=== PATIENT | female | born 1950 | race Caucasian/White ===

== ENCOUNTER 2017-09-03 11:38 | Inpatient (IN) | payer MEDICARE ==
[2017-09-03] MEDS ORDERED: PERCOCET TABLET 5/325MG PO PRN (18:17)
[2017-09-03] MEDS: Trandate 100 MG PO SCH (22:08)
[2017-09-03] MEDS: ENOXAPARIN SODIUM SQ SCH (22:09)
[2017-09-04] MEDS: TYLENOL 325 MG PO PRN ×2 (06:44→14:26)
[2017-09-04] MEDS ORDERED: Ventolin Hfa MDI IH PRN (07:00)
[2017-09-04] MEDS ORDERED: PROVENTIL COMMON CANISTER IH PRN (07:12)
[2017-09-04] MEDS: ENOXAPARIN SODIUM SQ SCH ×2 (09:33→21:33)
[2017-09-04] MEDS: NORVASC 5 MG PO SCH (09:34)
[2017-09-04] MEDS: Trandate 100 MG PO SCH ×2 (09:34→21:33)
[2017-09-04] MEDS: Maxzide-25MG Tablet PO SCH (09:37)
[2017-09-04] MEDS: Catapres 0.1 MG PO SCH (09:37)
[2017-09-04] MEDS ORDERED: NON-FORMULARY ITEM (Amlodipine Besylate 10 Mg [Norvasc 10 Mg] 10 MG) PO SCH (10:00)
[2017-09-04] MEDS ORDERED: Aplisol ID SCH (10:00)
[2017-09-04] MEDS ORDERED: Maxzide 25MG PO SCH (10:00)
[2017-09-04] MEDS ORDERED: CLONIDINE HCL 0.2 MG PO SCH (10:00)
[2017-09-04] MEDS: PERCOCET TABLET 5/325MG PO PRN (19:03)
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
[2017-09-05] MEDS: TYLENOL 325 MG PO PRN ×2 (06:53→14:58)
[2017-09-05] MEDS: PERCOCET TABLET 5/325MG PO PRN ×2 (08:14→22:16)
[2017-09-05] MEDS: NORVASC 5 MG PO SCH (11:23)
[2017-09-05] MEDS: Trandate 100 MG PO SCH ×2 (11:23→22:15)
[2017-09-05] MEDS: Maxzide-25MG Tablet PO SCH (11:23)
[2017-09-05] MEDS: Catapres 0.1 MG PO SCH (11:25)
[2017-09-05] MEDS: ENOXAPARIN SODIUM SQ SCH ×2 (11:29→22:17)
[2017-09-06] MEDS: Trandate 100 MG PO SCH ×2 (09:07→21:50)
[2017-09-06] MEDS: Catapres 0.1 MG PO SCH (09:07)
[2017-09-06] MEDS: NORVASC 5 MG PO SCH (09:07)
[2017-09-06] MEDS: Maxzide-25MG Tablet PO SCH (09:08)
[2017-09-06] MEDS: ENOXAPARIN SODIUM SQ SCH ×2 (09:09→21:49)
[2017-09-06] MEDS: TYLENOL 325 MG PO PRN (11:40)
[2017-09-06] MEDS: PERCOCET TABLET 5/325MG PO PRN (21:54)
[2017-09-07] MEDS: PERCOCET TABLET 5/325MG PO PRN (05:17)
[2017-09-07] MEDS: ENOXAPARIN SODIUM SQ SCH ×2 (09:01→22:30)
[2017-09-07] MEDS: Catapres 0.1 MG PO SCH (09:01)
[2017-09-07] MEDS: NORVASC 5 MG PO SCH (09:01)
[2017-09-07] MEDS: Maxzide-25MG Tablet PO SCH (09:02)
[2017-09-07] MEDS: Trandate 100 MG PO SCH ×2 (09:02→22:28)
[2017-09-07] MEDS: TYLENOL 325 MG PO PRN ×2 (12:27→22:28)
[2017-09-08] MEDS: NORVASC 5 MG PO SCH (09:13)
[2017-09-08] MEDS: Trandate 100 MG PO SCH ×2 (09:13→21:45)
[2017-09-08] MEDS: Catapres 0.1 MG PO SCH (09:14)
[2017-09-08] MEDS: PERCOCET TABLET 5/325MG PO PRN ×2 (09:14→21:45)
[2017-09-08] MEDS: Maxzide-25MG Tablet PO SCH (09:15)
[2017-09-08] MEDS: ENOXAPARIN SODIUM SQ SCH ×2 (09:16→21:45)
[2017-09-09] MEDS: ENOXAPARIN SODIUM SQ SCH ×2 (09:27→21:44)
[2017-09-09] MEDS: Catapres 0.1 MG PO SCH (09:27)
[2017-09-09] MEDS: NORVASC 5 MG PO SCH (09:28)
[2017-09-09] MEDS: Trandate 100 MG PO SCH ×2 (09:28→21:45)
[2017-09-09] MEDS: Maxzide-25MG Tablet PO SCH (09:28)
[2017-09-09] MEDS: Senokot-S Tablet PO SCH (10:20)
[2017-09-09] MEDS: PERCOCET TABLET 5/325MG PO PRN ×2 (11:04→21:44)
[2017-09-10 04:45] LABS: ANION GAP 10.6 MEQ/L (5-15); BLOOD UREA NITROGEN 21 mg/dL (7-17); CHLORIDE 104 mmol/L (98-107); Calcium 9.6 mg/dL (8.4-10.2); Carbon Dioxide 27 mmol/L (22-30); Creatinine 1 0.91 mg/dL (0.52-1.04); Glucose 114 mg/dL (74-106); Potassium 3.2 mmol/L (3.5-5.1); SODIUM 139 mmol/L (137-145)
[2017-09-10] MEDS: Senokot-S Tablet PO SCH (09:42)
[2017-09-10] MEDS: PERCOCET TABLET 5/325MG PO PRN ×2 (09:42→21:30)
[2017-09-10] MEDS: Catapres 0.1 MG PO SCH (09:43)
[2017-09-10] MEDS: NORVASC 5 MG PO SCH (09:43)
[2017-09-10] MEDS: Maxzide-25MG Tablet PO SCH (09:43)
[2017-09-10] MEDS: Trandate 100 MG PO SCH ×2 (09:44→21:31)
[2017-09-10] MEDS: Klor Con 10 MEQ PO SCH ×2 (09:44→21:31)
[2017-09-10] MEDS: ENOXAPARIN SODIUM SQ SCH ×2 (09:46→21:30)
[2017-09-11] MEDS: NORVASC 5 MG PO SCH (09:28)
[2017-09-11] MEDS: Trandate 100 MG PO SCH ×2 (09:29→21:19)
[2017-09-11] MEDS: Maxzide-25MG Tablet PO SCH (09:30)
[2017-09-11] MEDS: Senokot-S Tablet PO SCH (09:30)
[2017-09-11] MEDS: Klor Con 10 MEQ PO SCH ×2 (09:30→21:20)
[2017-09-11] MEDS: ENOXAPARIN SODIUM SQ SCH ×2 (09:30→21:20)
[2017-09-11] MEDS: Catapres 0.1 MG PO SCH (09:39)
[2017-09-11] MEDS: PERCOCET TABLET 5/325MG PO PRN (09:39)
[2017-09-12] MEDS: PERCOCET TABLET 5/325MG PO PRN ×2 (10:16→21:45)
[2017-09-12] MEDS: Maxzide-25MG Tablet PO SCH (10:17)
[2017-09-12] MEDS: Senokot-S Tablet PO SCH (10:17)
[2017-09-12] MEDS: Klor Con 10 MEQ PO SCH ×2 (10:18→21:49)
[2017-09-12] MEDS: Trandate 100 MG PO SCH ×2 (10:18→21:49)
[2017-09-12] MEDS: NORVASC 5 MG PO SCH (10:18)
[2017-09-12] MEDS: Catapres 0.1 MG PO SCH ×3 (10:18→21:49)
[2017-09-12] MEDS: ENOXAPARIN SODIUM SQ SCH ×2 (10:19→21:48)
[2017-09-13] MEDS: PERCOCET TABLET 5/325MG PO PRN (10:07)
[2017-09-13] MEDS: Catapres 0.1 MG PO SCH ×3 (10:08→22:26)
[2017-09-13] MEDS: Klor Con 10 MEQ PO SCH ×2 (10:08→22:27)
[2017-09-13] MEDS: Senokot-S Tablet PO SCH (10:08)
[2017-09-13] MEDS: Trandate 100 MG PO SCH ×2 (10:08→22:27)
[2017-09-13] MEDS: Maxzide-25MG Tablet PO SCH (10:09)
[2017-09-13] MEDS: NORVASC 5 MG PO SCH (10:09)
[2017-09-13] MEDS: ENOXAPARIN SODIUM SQ SCH ×2 (10:09→22:27)
[2017-09-13] MEDS ORDERED: PERCOCET TABLET 5/325MG PO PRN (16:16)
[2017-09-14] MEDS ORDERED: Aplisol ID SCH (10:00)
[2017-09-14] MEDS: Trandate 100 MG PO SCH ×2 (10:11→21:30)
[2017-09-14] MEDS: Catapres 0.1 MG PO SCH ×3 (10:12→21:30)
[2017-09-14] MEDS: Senokot-S Tablet PO SCH (10:14)
[2017-09-14] MEDS: NORVASC 5 MG PO SCH (10:14)
[2017-09-14] MEDS: Maxzide-25MG Tablet PO SCH (10:15)
[2017-09-14] MEDS: ENOXAPARIN SODIUM SQ SCH ×2 (10:16→21:31)
[2017-09-14] MEDS: Klor Con 10 MEQ PO SCH ×2 (10:16→21:30)
[2017-09-14] MEDS: TYLENOL 325 MG PO PRN (13:59)
[2017-09-15] MEDS: TYLENOL 325 MG PO PRN ×2 (09:00→22:17)
[2017-09-15] MEDS: Klor Con 10 MEQ PO SCH ×2 (09:00→22:18)
[2017-09-15] MEDS: Trandate 100 MG PO SCH ×2 (09:01→22:18)
[2017-09-15] MEDS: Maxzide-25MG Tablet PO SCH (09:01)
[2017-09-15] MEDS: Senokot-S Tablet PO SCH (09:02)
[2017-09-15] MEDS: Catapres 0.1 MG PO SCH ×3 (09:02→22:17)
[2017-09-15] MEDS: NORVASC 5 MG PO SCH (09:03)
[2017-09-15] MEDS: ENOXAPARIN SODIUM SQ SCH ×2 (09:04→22:17)
--- NOTE | 2017-09-15 19:17 | XRAY ---
Indication: Pain. Comparison: None AP/lateral nonweightbearing right foot demonstrates multiple orthopedic screws and external fixation device obscuring the majority of the foot. There appears to be 1st-5th metatarsal comminuted fractures in fairly good apposition/alignment. Comparison studies would be of benefit if available. No other bony, articular, or soft tissue abnormalities.
[2017-09-16] MEDS: NORVASC 5 MG PO SCH (10:03)
[2017-09-16] MEDS: Maxzide-25MG Tablet PO SCH (10:03)
[2017-09-16] MEDS: Catapres 0.1 MG PO SCH ×3 (10:03→21:47)
[2017-09-16] MEDS: Senokot-S Tablet PO SCH (10:03)
[2017-09-16] MEDS: Klor Con 10 MEQ PO SCH ×2 (10:04→21:47)
[2017-09-16] MEDS: Trandate 100 MG PO SCH ×2 (10:04→21:47)
[2017-09-16] MEDS: ENOXAPARIN SODIUM SQ SCH ×2 (10:06→21:51)
[2017-09-16] MEDS: TYLENOL 325 MG PO PRN (21:51)
[2017-09-17 04:32] LABS: ANION GAP 11.4 MEQ/L (5-15); BLOOD UREA NITROGEN 18 mg/dL (7-17); CHLORIDE 106 mmol/L (98-107); Calcium 9.6 mg/dL (8.4-10.2); Carbon Dioxide 26 mmol/L (22-30); Creatinine 1 0.72 mg/dL (0.52-1.04); Glucose 110 mg/dL (74-106); Potassium 3.6 mmol/L (3.5-5.1); SODIUM 140 mmol/L (137-145)
[2017-09-17] MEDS: Klor Con 10 MEQ PO SCH ×2 (09:07→21:56)
[2017-09-17] MEDS: NORVASC 5 MG PO SCH (09:07)
[2017-09-17] MEDS: Senokot-S Tablet PO SCH (09:07)
[2017-09-17] MEDS: Trandate 100 MG PO SCH ×2 (09:08→21:54)
[2017-09-17] MEDS: Catapres 0.1 MG PO SCH ×3 (09:08→21:56)
[2017-09-17] MEDS: ENOXAPARIN SODIUM SQ SCH ×2 (09:11→21:56)
[2017-09-17] MEDS: Maxzide-25MG Tablet PO SCH (13:05)
[2017-09-17] MEDS: TYLENOL 325 MG PO PRN (22:03)
[2017-09-18] MEDS: Catapres 0.1 MG PO SCH ×3 (08:12→21:25)
[2017-09-18] MEDS: NORVASC 5 MG PO SCH (08:12)
[2017-09-18] MEDS: Trandate 100 MG PO SCH ×2 (08:13→21:26)
[2017-09-18] MEDS: Klor Con 10 MEQ PO SCH ×2 (08:13→21:26)
[2017-09-18] MEDS: Maxzide-25MG Tablet PO SCH (08:13)
[2017-09-18] MEDS: ENOXAPARIN SODIUM SQ SCH ×2 (08:14→21:26)
[2017-09-18] MEDS: Senokot-S Tablet PO SCH (08:14)
[2017-09-18] MEDS: TYLENOL 325 MG PO PRN (08:14)
[2017-09-19] MEDS: TYLENOL 325 MG PO PRN ×3 (06:33→22:29)
[2017-09-19] MEDS: Catapres 0.1 MG PO SCH ×3 (09:17→22:29)
[2017-09-19] MEDS: Maxzide-25MG Tablet PO SCH (09:17)
[2017-09-19] MEDS: Trandate 100 MG PO SCH ×2 (09:17→22:30)
[2017-09-19] MEDS: NORVASC 5 MG PO SCH (09:18)
[2017-09-19] MEDS: ENOXAPARIN SODIUM SQ SCH ×2 (09:18→22:31)
[2017-09-19] MEDS: Klor Con 10 MEQ PO SCH ×2 (09:18→22:30)
[2017-09-19] MEDS: Senokot-S Tablet PO SCH (09:18)
[2017-09-20] MEDS: Catapres 0.1 MG PO SCH ×3 (09:59→22:50)
[2017-09-20] MEDS: TYLENOL 325 MG PO PRN ×2 (09:59→22:52)
[2017-09-20] MEDS: ENOXAPARIN SODIUM SQ SCH ×2 (10:00→22:50)
[2017-09-20] MEDS: Maxzide-25MG Tablet PO SCH (10:00)
[2017-09-20] MEDS: NORVASC 5 MG PO SCH (10:00)
[2017-09-20] MEDS: Klor Con 10 MEQ PO SCH ×2 (10:00→22:50)
[2017-09-20] MEDS: Senokot-S Tablet PO SCH (10:00)
[2017-09-20] MEDS: Trandate 100 MG PO SCH ×2 (10:01→22:51)
[2017-09-21] MEDS: TYLENOL 325 MG PO PRN ×2 (08:07→22:03)
[2017-09-21] MEDS: Klor Con 10 MEQ PO SCH ×2 (08:08→22:03)
[2017-09-21] MEDS: Catapres 0.1 MG PO SCH ×3 (08:09→22:03)
[2017-09-21] MEDS: NORVASC 5 MG PO SCH (08:09)
[2017-09-21] MEDS: Maxzide-25MG Tablet PO SCH (08:10)
[2017-09-21] MEDS: Trandate 100 MG PO SCH ×2 (08:10→22:04)
[2017-09-21] MEDS: ENOXAPARIN SODIUM SQ SCH ×2 (08:11→22:06)
[2017-09-21] MEDS: Senokot-S Tablet PO SCH (10:59)
[2017-09-22] MEDS: ENOXAPARIN SODIUM SQ SCH ×2 (09:35→22:39)
[2017-09-22] MEDS: NORVASC 5 MG PO SCH (09:35)
[2017-09-22] MEDS: Maxzide-25MG Tablet PO SCH (09:35)
[2017-09-22] MEDS: Klor Con 10 MEQ PO SCH ×2 (09:35→22:40)
[2017-09-22] MEDS: Senokot-S Tablet PO SCH (09:36)
[2017-09-22] MEDS: Trandate 100 MG PO SCH ×2 (09:36→22:40)
[2017-09-22] MEDS: Catapres 0.1 MG PO SCH ×3 (09:36→22:39)
[2017-09-22] MEDS: TYLENOL 325 MG PO PRN (22:41)
[2017-09-23] MEDS: Senokot-S Tablet PO SCH (10:49)
[2017-09-23] MEDS: Maxzide-25MG Tablet PO SCH (10:49)
[2017-09-23] MEDS: Klor Con 10 MEQ PO SCH ×2 (10:50→21:57)
[2017-09-23] MEDS: Catapres 0.1 MG PO SCH ×3 (10:50→21:57)
[2017-09-23] MEDS: NORVASC 5 MG PO SCH (10:50)
[2017-09-23] MEDS: Trandate 100 MG PO SCH ×2 (10:51→21:55)
[2017-09-23] MEDS: TYLENOL 325 MG PO PRN (10:57)
[2017-09-23] MEDS: ENOXAPARIN SODIUM SQ SCH ×2 (11:34→21:57)
[2017-09-24 07:00] VITALS: BP 156/72; PULSE 64; O2SAT 97
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
[2017-09-24] MEDS: TYLENOL 325 MG PO PRN (08:48)
[2017-09-24] MEDS: Senokot-S Tablet PO SCH (08:48)
[2017-09-24] MEDS: Trandate 100 MG PO SCH (08:48)
[2017-09-24] MEDS: Catapres 0.1 MG PO SCH ×2 (08:48→15:32)
[2017-09-24] MEDS: NORVASC 5 MG PO SCH (08:49)
[2017-09-24] MEDS: Maxzide-25MG Tablet PO SCH (08:49)
[2017-09-24] MEDS: Klor Con 10 MEQ PO SCH (08:49)
[2017-09-24] MEDS: ENOXAPARIN SODIUM SQ SCH ×2 (08:49→16:03)
[2019-09-09] MEDS ORDERED: VITAMIN D2 PO SCH (10:00)
== END 2017-09-24 16:10 | disposition home health service (06) | DRG 563 ==
LOC: MED SURG 17:20
PROVIDERS: ADMIT Family Medicine; ATTEND Family Medicine
DX: S92.901A Unspecified fracture of right foot, initial encounter for closed fracture (principal); S62.102A Fracture of unspecified carpal bone, left wrist, initial encounter for closed fracture; S42.002A Fracture of unspecified part of left clavicle, initial encounter for closed fracture; I10 Essential (primary) hypertension; R29.898 Other symptoms and signs involving the musculoskeletal system; V89.2XXA Person injured in unspecified motor-vehicle accident, traffic, initial encounter; W22.19XA Striking against or struck by other automobile airbag, initial encounter; M19.90 Unspecified osteoarthritis, unspecified site; R53.81 Other malaise
CPT/HCPCS: 36415; 73620; 80048; 94760; J1650; 97110-GP; A9270-GY

== ENCOUNTER 2018-08-22 13:25 | Inpatient (IN) | payer MEDICARE, OTHER ==
[2018-08-22] MEDS ORDERED: Norco 10/325 MG Tablet PO PRN (16:48)
[2018-08-22] MEDS ORDERED: Senokot-S Tablet PO PRN (16:48)
[2018-08-22] MEDS ORDERED: Aplisol ID ONE (17:00)
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
[2018-08-22] MEDS ORDERED: LABETALOL HCL PO SCH (22:00)
[2018-08-22] MEDS ORDERED: CLONIDINE HCL 0.2 MG PO SCH (22:00)
[2018-08-22] MEDS: Ecotrin 325 MG PO SCH (22:31)
[2018-08-22] MEDS: Trandate 100 MG PO SCH (22:31)
[2018-08-22] MEDS: Catapres 0.1 MG PO SCH (22:32)
[2018-08-23] MEDS ORDERED: FISH OIL PO SCH (10:00)
[2018-08-23] MEDS ORDERED: NON-FORMULARY ITEM (Multivitamin [Multivitamins] 1 EACH) PO SCH (10:00)
[2018-08-23] MEDS ORDERED: EPA PO SCH (10:00)
[2018-08-23] MEDS ORDERED: OMEGA PO SCH (10:00)
[2018-08-23] MEDS ORDERED: NON-FORMULARY ITEM (Amlodipine Besylate 10 Mg [Norvasc 10 Mg] 10 MG) PO SCH (10:00)
[2018-08-23] MEDS ORDERED: DHA PO SCH (10:00)
[2018-08-23] MEDS: TYLENOL 325 MG PO PRN ×3 (10:33→20:02)
[2018-08-23] MEDS: Ecotrin 325 MG PO SCH ×2 (10:34→21:29)
[2018-08-23] MEDS: FISH OIL 1,000 MG CAPSULE PO SCH (10:34)
[2018-08-23] MEDS: NORVASC 5 MG PO SCH (10:34)
[2018-08-23] MEDS: THERAGRAN MULTIVITAMIN PO SCH (10:34)
[2018-08-23] MEDS: Trandate 100 MG PO SCH ×2 (10:34→21:29)
[2018-08-23] MEDS: Maxzide-25MG Tablet PO SCH (10:34)
[2018-08-23] MEDS: Catapres 0.1 MG PO SCH (21:29)
[2018-08-24] MEDS: THERAGRAN MULTIVITAMIN PO SCH (08:45)
[2018-08-24] MEDS: Ecotrin 325 MG PO SCH ×2 (08:45→22:37)
[2018-08-24] MEDS: FISH OIL 1,000 MG CAPSULE PO SCH (08:45)
[2018-08-24] MEDS: Trandate 100 MG PO SCH ×2 (08:45→22:37)
[2018-08-24] MEDS: Maxzide-25MG Tablet PO SCH (08:45)
[2018-08-24] MEDS: TYLENOL 325 MG PO PRN ×3 (08:45→22:37)
[2018-08-24] MEDS: NORVASC 5 MG PO SCH (08:46)
[2018-08-24] MEDS: Catapres 0.1 MG PO SCH (22:36)
[2018-08-25] MEDS: TYLENOL 325 MG PO PRN ×5 (06:46→23:12)
[2018-08-25] MEDS: NORVASC 5 MG PO SCH (10:39)
[2018-08-25] MEDS: Ecotrin 325 MG PO SCH ×2 (10:39→22:08)
[2018-08-25] MEDS: THERAGRAN MULTIVITAMIN PO SCH ×2 (10:39→10:40)
[2018-08-25] MEDS: FISH OIL 1,000 MG CAPSULE PO SCH (10:39)
[2018-08-25] MEDS: Maxzide-25MG Tablet PO SCH ×2 (10:39→10:40)
[2018-08-25] MEDS: Trandate 100 MG PO SCH ×2 (10:44→22:09)
[2018-08-25] MEDS: Catapres 0.1 MG PO SCH (22:09)
[2018-08-26] MEDS: TYLENOL 325 MG PO PRN ×4 (03:40→19:53)
[2018-08-26] MEDS: FISH OIL 1,000 MG CAPSULE PO SCH (11:25)
[2018-08-26] MEDS: NORVASC 5 MG PO SCH (11:25)
[2018-08-26] MEDS: Ecotrin 325 MG PO SCH ×2 (11:25→22:16)
[2018-08-26] MEDS: Trandate 100 MG PO SCH ×2 (11:25→22:18)
[2018-08-26] MEDS: Catapres 0.1 MG PO SCH (22:19)
[2018-08-27] MEDS: TYLENOL 325 MG PO PRN ×5 (04:01→20:27)
[2018-08-27] MEDS: celeBREX 100 MG PO SCH (08:04)
[2018-08-27] MEDS: Trandate 100 MG PO SCH ×2 (08:04→20:27)
[2018-08-27] MEDS: FISH OIL 1,000 MG CAPSULE PO SCH (08:04)
[2018-08-27] MEDS: Ecotrin 325 MG PO SCH ×2 (08:04→20:27)
[2018-08-27] MEDS: Maxzide-25MG Tablet PO SCH (08:04)
[2018-08-27] MEDS: THERAGRAN MULTIVITAMIN PO SCH (08:04)
[2018-08-27] MEDS: NORVASC 5 MG PO SCH (08:04)
[2018-08-27] MEDS: Catapres 0.1 MG PO SCH (20:28)
[2018-08-28] MEDS: celeBREX 100 MG PO SCH (07:49)
[2018-08-28] MEDS: FISH OIL 1,000 MG CAPSULE PO SCH (07:49)
[2018-08-28] MEDS: Trandate 100 MG PO SCH ×2 (07:50→21:22)
[2018-08-28] MEDS: Maxzide-25MG Tablet PO SCH (07:50)
[2018-08-28] MEDS: THERAGRAN MULTIVITAMIN PO SCH (07:50)
[2018-08-28] MEDS: TYLENOL 325 MG PO PRN ×4 (07:50→20:08)
[2018-08-28] MEDS: Ecotrin 325 MG PO SCH ×2 (07:51→21:21)
[2018-08-28] MEDS: NORVASC 5 MG PO SCH (07:54)
[2018-08-28] MEDS: Catapres 0.1 MG PO SCH (21:21)
[2018-08-29] MEDS: TYLENOL 325 MG PO PRN ×4 (06:53→20:05)
[2018-08-29] MEDS: Ecotrin 325 MG PO SCH ×2 (07:46→21:59)
[2018-08-29] MEDS: celeBREX 100 MG PO SCH (07:46)
[2018-08-29] MEDS: FISH OIL 1,000 MG CAPSULE PO SCH (07:46)
[2018-08-29] MEDS: Trandate 100 MG PO SCH ×2 (07:47→21:59)
[2018-08-29] MEDS: THERAGRAN MULTIVITAMIN PO SCH (07:47)
[2018-08-29] MEDS: NORVASC 5 MG PO SCH (07:47)
[2018-08-29] MEDS: Maxzide-25MG Tablet PO SCH (09:42)
[2018-08-29] MEDS: Catapres 0.1 MG PO SCH (22:00)
[2018-08-30] MEDS: TYLENOL 325 MG PO PRN ×3 (02:57→22:05)
[2018-08-30] MEDS: NORVASC 5 MG PO SCH (10:59)
[2018-08-30] MEDS: Trandate 100 MG PO SCH ×2 (10:59→22:06)
[2018-08-30] MEDS: Ecotrin 325 MG PO SCH ×2 (10:59→22:07)
[2018-08-30] MEDS: FISH OIL 1,000 MG CAPSULE PO SCH (10:59)
[2018-08-30] MEDS: celeBREX 100 MG PO SCH (11:00)
[2018-08-30] MEDS: Maxzide-25MG Tablet PO SCH (11:01)
[2018-08-30] MEDS: THERAGRAN MULTIVITAMIN PO SCH (11:01)
[2018-08-30] MEDS ORDERED: MOTRIN 400 MG PO PRN (13:28)
[2018-08-30] MEDS ORDERED: MAG-OX 400 PO SCH (14:00)
[2018-08-30] MEDS: Catapres 0.1 MG PO SCH (22:06)
[2018-08-31] MEDS: TYLENOL 325 MG PO PRN ×3 (06:26→18:37)
[2018-08-31] MEDS: MAG-OX 400 PO PRN (08:00)
[2018-08-31] MEDS: FISH OIL 1,000 MG CAPSULE PO SCH (10:21)
[2018-08-31] MEDS: NORVASC 5 MG PO SCH (10:21)
[2018-08-31] MEDS: Maxzide-25MG Tablet PO SCH (10:21)
[2018-08-31] MEDS: Ecotrin 325 MG PO SCH ×2 (10:21→21:36)
[2018-08-31] MEDS: celeBREX 100 MG PO SCH (10:21)
[2018-08-31] MEDS: Trandate 100 MG PO SCH ×2 (10:22→21:36)
[2018-08-31] MEDS: THERAGRAN MULTIVITAMIN PO SCH (10:22)
[2018-08-31] MEDS: Catapres 0.1 MG PO SCH (21:36)
[2018-09-01] MEDS: TYLENOL 325 MG PO PRN (07:19)
[2018-09-01 07:37] VITALS: BP 146/65; PULSE 67; O2SAT 96
[2018-09-01] MEDS: FISH OIL 1,000 MG CAPSULE PO SCH (10:02)
[2018-09-01] MEDS: NORVASC 5 MG PO SCH (10:02)
[2018-09-01] MEDS: Ecotrin 325 MG PO SCH (10:02)
[2018-09-01] MEDS: celeBREX 100 MG PO SCH (10:02)
[2018-09-01] MEDS: MAG-OX 400 PO PRN (10:02)
[2018-09-01] MEDS: Trandate 100 MG PO SCH (10:03)
[2018-09-01] MEDS: THERAGRAN MULTIVITAMIN PO SCH (10:03)
[2018-09-01] MEDS: Maxzide-25MG Tablet PO SCH (10:03)
--- NOTE | 2018-09-01 11:23 | DS ---
DISCHARGE DIAGNOSIS: LEFT KNEE REPLACEMENT. HOSPITAL COURSE: The patient is a 68 year-old white female who recently had knee replacement performed at an outside facility. She was admitted to our facility for rehab for the knee. The patient has done well during her stay, receiving physical therapy during her stay. She had no problems whatsoever during her stay and is felt to be ready for discharge home by the morning of 09/01/2018. She will continue with outpatient therapy as per her orthopedic physician's request. She had seen him on a leave of absence during her stay and the knee appears to be doing well. She was discharged home at this time. She should continue on her usual home medications as listed previously of amlodipine 10 mg a day, Ecotrin 325 mg a day, clonidine 0.2 mg at night, [place] 10/325 mg, labetalol 150 mg b.i.d. and Maxzide 25 mg one tablet daily.
== END 2018-09-01 15:10 | disposition home or self-care (01) | DRG 561 ==
LOC: MED SURG 14:00
PROVIDERS: ADMIT Family Medicine; ATTEND Family Medicine
DX: Z47.1 Aftercare following joint replacement surgery (principal); Z96.652 Presence of left artificial knee joint; I10 Essential (primary) hypertension; Z79.899 Other long term (current) drug therapy
CPT/HCPCS: 97110-GP; A9270-GY

== ENCOUNTER 2023-03-21 10:43 | Emergency (ER) | payer MEDICARE, OTHER ==
--- NOTE | 2023-03-20 09:05 | HP ---
DATE OF SURGERY: 03/21/2023 HISTORY OF PRESENT ILLNESS: The patient is a 72-year-old female presents with nausea, vomiting and right upper quadrant pain. She went to the emergency room for this. She has had some diarrheal. She states milk and ice cream makes this worse. She has had this for a few years. Her HIDA scan was 80%. PAST MEDICAL HISTORY: Hypertension, hyperlipidemia, sleep apnea, angina. PAST SURGICAL HISTORY: Tonsillectomy. Foot surgery. Knee replacement. ALLERGIES: STATINS. MEDICATIONS: Amlodipine, Clonidine, isosorbide, labetalol, triamterene, hydrochlorothiazide. FAMILY HISTORY: Hypertension. SOCIAL HISTORY: Negative. REVIEW OF SYSTEMS: CONSTITUTIONAL: Denies fever or chills. CHEST: Denies shortness of breath. CVS: Denies chest pain. ABDOMEN: Reports right upper quadrant pain. PHYSICAL EXAMINATION: GENERAL: No acute distress. CHEST: Nonlabored. No shortness of breath. CVS: Regular rate and rhythm. ABDOMEN: Soft. IMPRESSION: Biliary dyskinesia. PLAN: Laparoscopic cholecystectomy with Dr. Herbert York. As dictated by Martha Soto NP.
[2023-03-21] MEDS: Lactated Ringers 1,000 ML IV SCH ×2 (09:08→09:33)
[2023-03-21 09:40] LABS: Hematocrit 42.3 % (35-47); Hemoglobin 14.1 g/dL (12.0-16.0); Mean Cell Volume 85.1 fL (78-100); Mean Corpuscular Hemoglobin 28.4 pg (26-32); Mean Corpuscular Hgb Concent. 33.3 g/dL (32-36); Mean Platelet Volume 10.7 fL (7.5-11.0); Platelet Count 250 x10^3/uL (150-450); Red Blood Count 4.97 x10^6/uL (4.1-5.4); Red Cell Distribution Width 12.9 % (11.5-14.0); White Blood Count 7.4 x10^3/uL (4.0-10.5)
[2023-03-21 09:54] LABS: ALBUMIN 4.2 g/dL (3.5-5.0); ANION GAP 13.4 MEQ/L (5-15); BILIRUBIN,TOTAL 1.2 mg/dL (0.2-1.3); Calcium 9.2 mg/dL (8.4-10.2); Creatinine 1 0.89 mg/dL (0.52-1.04); Potassium 3.1 mmol/L (3.5-5.1); Total Protein 7.5 g/dL (6.3-8.2)
[~2023-03-21 10:43] MED LIST: DIPRIVAN 200 MG/20 ML IV ONE; MEFOXIN 2 GM PREMIX** 2 GM/50 ML ML IV SCH; SUBLIMAZE 100 MCG/2 ML ONE; Sensorcaine 0.25% 10 ML ONE; Versed 2 MG/2 ML Injection ONE; Zemuron 100 MG/10 ML ONE
[2023-03-21 11:00] VITALS: TEMP 97.6
[2023-03-21 11:32] LABS: Absolute Neutrophil Ct (ANC) 5.94 x10^3/uL (1.4-6.9); BASOPHIL % 0.1 % (0.0-0.4); Basophil (Absolute #) 0.01 x10^3/uL (0-0.4); Eosinophil % 0.6 % (0.00-5.0); Eosinophil (Absolute #) 0.05 x10^3/uL (0-0.5); Hematocrit 44.2 % (35-47); Hemoglobin 14.9 g/dL (12.0-16.0); IMMATURE GRAN # 0.03 x10^3u/L (0.00-0.03); IMMATURE GRAN % 0.4 % (0.00-0.4); Lymphocyte (Absolute #) 1.85 x10^3/uL (1.0-4.6); Lymphocytes % 22.4 % (24.0-44.0); Mean Cell Volume 84.4 fL (78-100); Mean Corpuscular Hemoglobin 28.4 pg (26-32); Mean Corpuscular Hgb Concent. 33.7 g/dL (32-36); Mean Platelet Volume 10.6 fL (7.5-11.0); Monocyte (Absolute #) 0.38 x10^3/uL (0.0-1.3); Monocytes % 4.6 % (0.0-12.0); Neutrophil % 71.9 % (36.0-66.0); Platelet Count 272 x10^3/uL (150-450); Red Blood Count 5.24 x10^6/uL (4.1-5.4); White Blood Count 8.3 x10^3/uL (4.0-10.5)
[2023-03-21 11:45] LABS: ALBUMIN 4.5 g/dL (3.5-5.0); ANION GAP 12.4 MEQ/L (5-15); BILIRUBIN,TOTAL 1.1 mg/dL (0.2-1.3); Calcium 9.7 mg/dL (8.4-10.2); Creatinine 1 0.86 mg/dL (0.52-1.04); EST GLOMERULAR FILTRATION RATE 70.9 ML/MIN; Total Protein 7.8 g/dL (6.3-8.2)
[2023-03-21 12:07] VITALS: O2SAT 98
--- NOTE | 2023-03-21 12:11 | XRAY ---
Indication: Atrial fibrillation. Comparison: September 28, 2014 Portable chest inflated with stable minimal left mid fibrosis/scarring. No focal infiltrate, consolidation, or large effusion. Heart borderline enlarged again with tortuous descending aorta. Bony thorax intact again with osteopenia, mild degenerative changes, and mild dextroscoliosis. Impression: Nonacute chest with chronic features.
[2023-03-21] MEDS ORDERED: Klor Con PO ONE ×2 (12:14→12:16)
[2023-03-21] MEDS ORDERED: Lactated Ringers 1,000 ML IV ONE (12:18)
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
[2023-03-21 13:04] VITALS: BP 139/92; PULSE 86; RESP 24
[2023-03-21] MEDS ORDERED: ELIQUIS 2.5 MG TABLET PO ONE (14:00)
== END 2023-03-21 13:49 | disposition home or self-care (01) ==
LOC: ED 10:43 → EDSTATUS 10:43 → ED 13:49
DX: I48.91 Unspecified atrial fibrillation (principal); E87.6 Hypokalemia; I10 Essential (primary) hypertension; Z79.891 Long term (current) use of opiate analgesic; Z79.01 Long term (current) use of anticoagulants; Z79.899 Other long term (current) drug therapy
CPT/HCPCS: 36000; 36415; 71045; 80053; 83880; 84484; 85025; 85027; 93005; 93041; 99284; J0694; J2250; J2704; J3010; A9270-GY